=== PATIENT | male | born 1990 | race Hispanic/Latino ===

== ENCOUNTER 2016-08-09 18:18 | Emergency (ER) | payer OTHER ==
[~2016-08-09] VITALS: Ht 165.1 cm; Wt 63.4 kg
[~2016-08-09 18:18] MED LIST: CLINDAMYCIN HC150 MG PO; NOHOMEMEDS
[2016-08-09 20:39] LABS: HEMATOCRIT 38.8 % (38.0-50.0); MCH 32.5 PG (29.0-34.0); MCHC 34.5 G/DL (30.0-36.0); MCV 94.2 FL (86-99); MEAN PLAT.VOLUME 9.6 uM^3 (9.0-12.4); PLATELET COUNT 317 K/uL (156-360); RBC DIS.WIDTH-CV 12.4 % (11.8-14.6); RBC DIS.WIDTH-SD 43.2 % (39-53); RED BLOOD COUNT 4.12 M/uL (4.00-5.50); WHITE BLOOD COUNT 10.3 K/uL (4.1-10.2)
[2016-08-09 20:50] LABS: CHLORIDE 104 mEq/L (99-109); POTASSIUM 4.1 mEq/L (3.7-5.4); SODIUM 140 mEq/L (136-147)
[2016-08-09 20:51] LABS: GLUCOSE 114 mg/dL (70-99)
[2016-08-09 20:53] LABS: ANION GAP 10 MEQ/L (2-14)
[2016-08-09 20:55] LABS: GFR ESTIMATE (CALCULATED) > 59 mL/min/
[2016-08-09 20:56] LABS: UREA NITROGEN (BUN) 13 mg/dL (9-23)
[2016-08-09] MEDS ORDERED: CLINDAMYCIN HC150 MG PO (23:26)
[2016-08-09] MEDS ORDERED: PERCOCET 5/31 TABLET PO (23:34)
[2016-08-10 00:10] VITALS: BP 121/67
== END 2016-08-10 00:11 | disposition home or self-care (01) ==
LOC: RME 18:18 → EME 18:18 → RME 08-10 00:11
PROVIDERS: Nurse Practitioner Family
DX: K12.2 Cellulitis and abscess of mouth (principal); L03.211 Cellulitis of face; F17.200 Nicotine dependence, unspecified, uncomplicated; Y04.0XXA Assault by unarmed brawl or fight, initial encounter
CPT/HCPCS: 70487; 80048; 85027; 99281; 99284; J7030

== ENCOUNTER 2016-09-25 10:10 | Emergency (ER) | payer OTHER ==
[~2016-09-25] VITALS: Ht 162.6 cm; Wt 62.3 kg
[~2016-09-25 10:10] MED LIST changes: +PERCOCET 5/31 TABLET PO
[2016-09-25 10:17] VITALS: BP 120/75
[2016-09-25] MEDS ORDERED: KEFLEX500 MG PO (14:06)
== END 2016-09-25 11:19 | disposition left against medical advice (07) ==
LOC: EME 10:10
DX: R68.84 Jaw pain (principal); Z53.21 Procedure and treatment not carried out due to patient leaving prior to being seen by health care provider

== ENCOUNTER 2016-09-25 11:24 | Emergency (ER) | payer OTHER ==
[~2016-09-25] VITALS: Ht 162.6 cm; Wt 62.0 kg
[2016-09-25] MEDS ORDERED: KEFLEX500 MG PO (14:06)
[2016-09-25 14:35] VITALS: BP 118/69
== END 2016-09-25 14:38 | disposition home or self-care (01) ==
LOC: EME 11:24
PROC: 0H91XZZ Drainage of Face Skin, External Approach (ICD-10-PCS; principal; 2016-09-25)
DX: L72.8 Other follicular cysts of the skin and subcutaneous tissue (principal)
CPT/HCPCS: 99281; 99283

== ENCOUNTER 2017-09-16 14:38 | Emergency (ER) | payer OTHER ==
[~2017-09-16] VITALS: Ht 165.1 cm; Wt 62.7 kg
[~2017-09-16 14:38] MED LIST changes: +KEFLEX500 MG PO
[2017-09-16] MEDS ORDERED: FLEXERIL10 MG PO (16:13)
[2017-09-16] MEDS ORDERED: NAPROSYN500 MG PO (16:13)
[2017-09-16 16:28] VITALS: BP 122/60
== END 2017-09-16 16:29 | disposition home or self-care (01) ==
LOC: EME 14:38
DX: S80.211A Abrasion, right knee, initial encounter (principal); S80.212A Abrasion, left knee, initial encounter; M54.2 Cervicalgia; V40.0XXA Car driver injured in collision with pedestrian or animal in nontraffic accident, initial encounter; Y92.411 Interstate highway as the place of occurrence of the external cause; Z87.891 Personal history of nicotine dependence
CPT/HCPCS: 99281; 99284